=== PATIENT | male | born 1970 | race African-American/Black ===

== ENCOUNTER 2025-07-28 07:50 | Inpatient (IN) | payer OTHER ==
[2025-07-28 08:09] VITALS: BMI 24.9
[2025-07-28] MEDS ORDERED: METHOCARBAMOL 500 MG TABLET PO PRN (09:00)
[2025-07-28] MEDS ORDERED: IBUPROFEN 600 MG TABLET (FP) PO PRN (09:00)
[2025-07-28] MEDS ORDERED: hydrOXYzine PAMOATE 25 MG CAPSULE (FP) PO PRN (09:00)
[2025-07-28] MEDS ORDERED: NALOXONE (NARCAN) HCL 4 MG/0.1 ML SPRAY NS PRN (09:00)
[2025-07-28] MEDS ORDERED: MAG HYDROX/AL HYDROX/SIMETH 30 ML UNIT-DOSE CUP PO PRN (09:00)
[2025-07-28] MEDS ORDERED: NICOTINE POLACRILEX 4 MG LOZENGE BC PRN (09:00)
[2025-07-28] MEDS ORDERED: BISMUTH SUBSALICYLATE 524 MG/30 ML PO PRN (09:00)
[2025-07-28] MEDS ORDERED: MAGNESIUM HYDROX 2400MG/30ML ORAL SUSPENSION 30 ML CUP PO PRN (09:00)
[2025-07-28] MEDS ORDERED: ACETAMINOPHEN 325 MG TABLET (FP) PO PRN (09:00)
[2025-07-28] MEDS ORDERED: DICYCLOMINE HCL 10 MG CAPSULE PO PRN (09:00)
[2025-07-28] MEDS ORDERED: BENZONATATE 200 MG CAPSULE PO PRN (09:00)
[2025-07-28] MEDS ORDERED: ONDANSETRON *ODT* 4 MG TABLET SL PRN (09:00)
[2025-07-28] MEDS ORDERED: BENZOCAINE/MENTHOL (CHLORASEPTIC ) LOZENGE MM PRN (09:00)
[2025-07-28] MEDS ORDERED: LOPERAMIDE HCL 2 MG CAPSULE PO PRN (09:00)
[2025-07-28] MEDS ORDERED: POLYETHYLENE GLYCOL (HEALTHYLAX) 3350 17 GM PACKET PO PRN (09:00)
[2025-07-28] MEDS ORDERED: IBUPROFEN 400 MG TABLET (FP) PO PRN (09:00)
[2025-07-28] MEDS ORDERED: guaiFENesin 600 MG TABLET.ER (FP) PO PRN (09:00)
[2025-07-28] MEDS: levETIRAcetam 500 MG TABLET (FP) PO SCH (11:10)
[2025-07-28] MEDS: BUPRENORPHINE/NALOXONE 0.5 MG/0.125 MG FILM SL ONE ×2 (11:35→22:41)
[2025-07-28] MEDS: PRENATAL VITAMINS W/ FOLIC ACID TABLET (FP) PO SCH (11:35)
[2025-07-28] MEDS: LIDOCAINE 5% TOPICAL PATCH TP SCH (11:59)
[2025-07-28] MEDS: NICOTINE 21 MG/24 HOURS TOPICAL PATCH TD SCH (12:00)
[2025-07-28 15:24] LABS: HIV INTERPRETATION NEGATIVE (NEGATIVE)
[2025-07-28 17:17] LABS: HCV DIAGNOSTIC IN-HOUSE W/RFLX REACTIVE (NONREACTIVE)
[2025-07-28] MEDS: MIRTAZAPINE 15 MG TABLET (FP) PO SCH (22:38)
[2025-07-28] MEDS: MELATONIN 5 MG TABLETS PO SCH (22:46)
[2025-07-28] MEDS: THIAMINE 100 MG TABLET PO SCH (22:47)
[2025-07-28] MEDS: LIDOCAINE PATCH REMOVAL MC SCH (23:11)
[2025-07-29] MEDS: BUPRENORPHINE/NALOXONE 0.5 MG/0.125 MG FILM SL SCH (10:37)
[2025-07-29 11:41] LABS: MCHC 31.7 g/dl (32.3-36.5); MEAN CELL VOLUME 97.0 fl (79.0-92.2); MEAN PLT VOLUME 9.9 fl (9.4-12.4); RDW 14.1 % (12.2-16.1)
[2025-07-29 11:54] LABS: GLUCOSE,RANDOM 89.0 mg/dL (74-106); TOT PROT 7.9 g/dl (6.4-8.2)
[2025-07-29 11:55] LABS: CO2 26.0 mmol/L (21-32)
[2025-07-29 11:57] LABS: ALK PHOS 64.0 U/L (40-150)
[2025-07-29 12:00] LABS: CREATININE 0.95 mg/dL (0.55-1.3); SGOT/AST 36.0 U/L (5-34); SGPT/ALT 16.0 U/L (0-55)
[2025-07-29] MEDS: FLU VACC TS2025-26(6MOS UP)/PF 45 MCG/0.5 ML SYRINGE IM ONE (12:53)
[2025-07-30] MEDS: BUPRENORPHINE/NALOXONE 2 MG/0.5 MG FILM PACKET SL SCH (10:46)
[2025-07-31] MEDS: BUPRENORPHINE/NALOXONE 4 MG/1 MG FILM PACKET SL SCH (10:58)
[2025-08-01] MEDS: BUPRENORPHINE/NALOXONE 8 MG/2 MG FILM PACKET SL SCH (09:35)
[2025-08-02 06:47] VITALS: BP 114/71; PULSE 73; RESP 17; TEMP 97.5
[2025-08-02] MEDS: BUPRENORPHINE/NALOXONE 8 MG/2 MG FILM PACKET SL SCH (09:21)
== END 2025-08-02 09:23 | disposition home or self-care (01) | DRG 773 ==
LOC: YASAS 07:50 → SUATTDRO 07:50 → Y3N 10:35
PROVIDERS: ADMIT Family Medicine; ATTEND Counselor Addiction (Substance Use Disorder)
PROC: HZ2ZZZZ Detoxification Services for Substance Abuse Treatment (ICD-10-PCS; principal; 2025-07-28)
DX: F11.23 Opioid dependence with withdrawal (principal); F10.230 Alcohol dependence with withdrawal, uncomplicated; F12.20 Cannabis dependence, uncomplicated; F14.20 Cocaine dependence, uncomplicated; F17.210 Nicotine dependence, cigarettes, uncomplicated; F41.8 Other specified anxiety disorders; G62.9 Polyneuropathy, unspecified
CPT/HCPCS: 36415; 80053; 80305; 80307; 85027; 86780; 86803; 87389; 87522; 93005; 93010